=== PATIENT | female | born 1945 | race African-American/Black ===

== ENCOUNTER 2024-08-24 21:16 | Inpatient (IN) ==
--- NOTE | 2024-08-24 21:37 | Emergency Department Note ---
HPI - Dizziness General Chief Complaint: Dizziness Stated Complaint: HIGH BLOOD PRESSURE Time Seen by Provider: 08/24/24 21:37 Source: patient, family and EMS Source comment: patient's granddaughter Mode of arrival: ambulance Limitations: no limitations History of Present Illness MD elicited complaint: Reports dizziness and vertigo Onset (ago): hour(s) Timing: Reports sudden onset and constant Severity: moderate Description: Reports sense of movement, "room spinning" and lightheadedness Context: Reports change in body position History of similar symptoms: No Exacerbating factors: Reports movement/ambulation, change in body position, keeping eyes open and standing Relieving factors: Reports nothing Associated symptoms: Reports nausea, vomiting and weakness Associated neuro symptoms: Reports other (dizziness, vertigo) Related Data Allergies Allergy/AdvReac Type Severity Reaction Status Date / Time No Known Drug Allergies Allergy Verified 08/24/24 21:33 Review of Systems Status of ROS 10 or more systems reviewed and unremark able except as noted in history and below Constitutional Reports: malaise Ears, nose, mouth, and throat Reports: vertigo Cardiovascular Reports: lightheadedness Gastrointestinal Reports: abdominal pain, nausea, vomiting and diarrhea Neurological Reports: headache, dizziness and vertigo Psychiatric Reports: anxiety PFSH PFSH Medical History (Updated 08/24/24 @ 21:41 by Alma Jones RN) Carpal tunnel syndrome on both sides Hyperlipidemia Diabetes Surgical History (Updated 08/24/24 @ 21:41 by Alma Jones RN) History of neck surgery Previous back surgery H/O: hysterectomy Social History Smoking status: never smoker Feel stressed/tense/nervous/anxious/difficulty sleeping: rather much Life stressor details: Current medical status Due to disability, difficulty making decisions: No Exam Constitutional: normal general appearance, distress noted (moderate), average body habitus, no limitations and alert Vital Signs - 24 hr 08/24/24 21:18 08/24/24 21:43 08/24/24 21:50 Temperature 98.7 F Pulse Rate 71 65 Respiratory Rate 20 20 Blood Pressure 224/95 222/97 250/97 Pulse Oximetry 97 98 Oxygen Delivery Me thod Room Air Room Air 08/24/24 22:10 08/24/24 22:15 08/24/24 22:30 Temperature Pulse Rate 67 66 Respiratory Rate 20 19 Blood Pressure 218/92 209/87 211/84 Pulse Oximetry 99 97 Oxygen Delivery Me thod Room Air Room Air 08/24/24 22:45 08/24/24 23:00 08/24/24 23:15 Temperature Pulse Rate 67 70 Respiratory Rate 20 19 Blood Pressure 210/90 213/91 215/88 Pulse Oximetry 97 96 Oxygen Delivery Ri thod Room Air Room Air 08/24/24 23:15 08/24/24 23:30 08/25/24 00:00 Temperature 98.7 F Pulse Rate 69 67 80 Respiratory Rate 20 20 21 Blood Pressure 215/88 197/82 142/64 Pulse Oximetry 97 96 97 Oxygen Delivery Ri thod Room Air Room Air Room Air 08/25/24 00:00 08/25/24 00:30 08/25/24 01:00 Temperature Pulse Rate 81 82 Respiratory Rate 18 18 Blood Pressure 142/64 143/62 125/60 Pulse Oximetry 96 97 Oxygen Delivery Ri thod Room Air Room Air HENMT: normocephalic, head/scalp atraumatic, hearing grossly normal bi laterally, external ears normal, external nose normal, oral mucous membranes normal, oropharynx normal, dentition normal and gingiva normal Eyes: PERRL, EOMs intact bilaterally, conjunctivae normal, no scleral icterus, no papilledema, normal visual patiño by confrontation, alignment normal, periorbital findings normal and no nystagmus Neck/C-Spine: visual inspection normal, trachea midline, cervical spine tenderness noted, cervical full ROM noted, supple and no meningeal signs Patient has pain when turning her head to the far left related to prior neck and back surgeries and removal of the cyst a year ago. Lymph: no lymphadenopathy noted and no lymphedema noted Chest: inspection of chest normal, inspection of breast(s) abnormal (deferred) and palpation of breast(s) abnormal (deferred) Respiratory: breath sounds equal bilaterally, normal respiratory effort, clear to auscultation bilaterally, no wheezes, no rales, no retractions and no use of accessory muscles Cardiovascular: normal heart rate noted, regular rhythm noted, no gallop, no JVD, peripheral pulses 2+ throughout and no additional abnormal heart sounds Gastrointestinal: abdomen normal to inspection, abdomen soft to palpation, tender to palpation (Diffuse abdominal pain) (moderate), nondistended, normoactive bowel sounds, no hepatosplenomegaly, no masses, no pulsatile mass, no ascites and rectal exam abnormal (deferred) Genitourinary: no CVA tenderness, bladder normal to palpation, vaginal abnormality noted (deferred) and cervical abnormality noted (deferred) Back/Pelvis: spine normal to inspection Extremities: normal to inspection, normal to palpation, no tenderness, full ROM, no joint enlargement and no deformity Neurology: audio visual coordinator II-XII intact, no movement abnormality noted, no focal motor deficit noted, no sensory deficits noted, gait abnormality noted (unable to access), speech normal, coordination normal, no pronator drift noted, no fasciculations noted and GCS normal Psychiatry: Mental Status Exam documented within this Exam's Psych section mental status grossly normal, oriented x3, thought process normal, cooperative, affect abnormality noted (anxious), psychomotor activity normal and memory normal Feel stressed/tense/nervous/anxious/difficulty sleeping: rather much Life stressor details: Current medical status Due to disability, difficulty making decisions: No Skin: skin color normal, no rash, no lesions, no ecchymosis noted, no wounds, no lacerations, skin turgor normal, no jaundice, no petechiae, no mottling, nails normal and no alopecia Course Course Hospital Course: 79-year-old female who presented to ER by EMS with complaint of dizziness, nausea, vomiting, diarrhea, chest pain, and hypertension crisis has been evaluated by physical exam, CBC, CMP, troponin, urinalysis, EKG, CT of the brain without contrast, CT of the abdomen pelvis without contrast, and magnesium with results as noted in charting. On arrival patient was found to be in hypertensive urgency that included headache lab work revealed hypomagnesemia, mild anemia, CT shows no acute intracranial bleed; however, there are white matter changes and CT of the abdomen pelvis is unremarkable. Patient is continue to complain throughout her stay about her headache being the worst when she has had, she is continue to have nausea and vomiting, and she reports that she is unable to open her eyes due to the room spinning so badly. Patient will be admitted to [facility] floor hypertensive urgency which is improved, hypomagnesemia, intractable nausea vomiting, intractable pain, hyperglycemia, and CVA rule out. Patient and family are aware of the treatment plan and agree with that at this time. Vital Signs Vital signs: Vital Signs Temperature 98.7 F 08/24/24 21:18 Pulse Rate 71 08/24/24 21:18 Respiratory Rate 20 08/24/24 21:18 Blood Pressure 224/95 08/24/24 21:18 Pulse Oximetry 97 08/24/24 21:18 Oxygen Delivery Method Room Air 08/24/24 21:18 Temperature 98.7 F 08/25/24 00:00 Pulse Rate 82 08/25/24 01:00 Respiratory Rate 18 08/25/24 01:00 Blood Pressure 125/60 08/25/24 01:00 Pulse Oximetry 97 08/25/24 01:00 Oxygen Delivery Method Room Air 08/25/24 01:00 Discharge Plan Discharge Patient Disposition: Admitted As Observation Condition: Stable Clinical Impression: Hypomagnesemia, Hypertensive urgency, Cerebrovascular accident, Intractable nausea and vomiting, Intractable pain, Headache, Vertigo Time of Disposition: 00:15
[2024-08-24] MEDS: MECLIZINE HCL 25 MG TABLET PO STA (21:43)
[2024-08-24] MEDS: HYDRALAZINE HCL 20 MG/ML VIAL IVP ONE ×2 (21:43→23:15)
[2024-08-24 22:12] LABS: Basophils%(Percent) Auto 0.7 (0.1-0.85); Eosinophils%(Percent) Auto 0.8 % (0.4-2.8); Granulocytes#(Absolute)- Auto 3.8 (2.3-6.0); Hematocrit 35.4 % (35.9-46.7); Mean Corpuscular Volume 85.1 fl (81.0-93.7); Monocytes #(Absolute)- Auto 0.5 (1.1-3.1); Platelet Count 242 K/uL (152-353); White Blood Count 5.4 K/uL (4.3-9.3)
[2024-08-24 22:12] LABS: Urine Appearance CLEAR (CLEAR); Urine Blood NEGATIVE (NEG - TRACE); Urine Color YELLOW (STRAW/YELL.); Urine Urobilinogen Normal (NORMAL)
[2024-08-24 22:17] LABS: Potassium 3.9 mmol/L (3.6-5.2)
[2024-08-24] MEDS ORDERED: MAGNESIUM SULFATE 1 GM/2 ML VIAL ONE (23:13)
[2024-08-24] MEDS ORDERED: 0.9 % SODIUM CHLORIDE 100ML 100 ML IV ONE (23:15)
[2024-08-24] MEDS: MAGNESIUM SULFATE 1 GM/2 ML 2 GM in 0.9 % SODIUM CHLORIDE 100ML 100 ML IV ONE (23:16)
[2024-08-24] MEDS ORDERED: ONDANSETRON HCL/PF 4 MG/2 ML VIAL ONE (23:25)
[2024-08-24] MEDS: ONDANSETRON HCL/PF 4 MG/2 ML VIAL IVP ONE (23:30)
[2024-08-25] MEDS ORDERED: LORazepam 2 MG/ML VIAL ONE (00:06)
[2024-08-25] MEDS: LORazepam 2 MG/ML VIAL IVP ONE (00:10)
[2024-08-25] MEDS ORDERED: ONDANSETRON HCL/PF 4 MG/2 ML VIAL INJ PRN (02:19)
[2024-08-25] MEDS ORDERED: DOCUSATE SODIUM 100 MG CAPSULE PO PRN (02:19)
[2024-08-25] MEDS ORDERED: MAGNESIUM, ALUMINUM HYDROXIDE 30 ML ORAL.SUSP PO PRN (02:19)
[2024-08-25] MEDS ORDERED: HYDROCODONE/ACETAMINOPHEN 5/325 MG TABLET PO PRN (02:25)
[2024-08-25] MEDS ORDERED: MORPHINE SULFATE 4 MG/ML CARTRIDGE IV PRN (02:25)
[2024-08-25] MEDS ORDERED: PROMETHAZINE HCL 25 MG in 0.9 % SODIUM CHLORIDE 50 ML IV PRN (02:25)
[2024-08-25] MEDS ORDERED: ALPRAZolam 0.5 MG TABLET PO PRN (02:25)
[2024-08-25] MEDS ORDERED: MECLIZINE HCL 25 MG TABLET PO PRN (02:25)
[2024-08-25] MEDS: 0.9 % SODIUM CHLORIDE 1000 ML 1,000 ML IV SCH (02:58)
[2024-08-25] MEDS: PANTOPRAZOLE SODIUM 40 MG TABLET.DR PO SCH ×2 (09:13→11:28)
[2024-08-25 09:49] LABS: Basophils%(Percent) Auto 0.2 (0.1-0.85); Granulocytes % - Auto 77.2 % (47.8-71.3); Granulocytes#(Absolute)- Auto 5.1 (2.3-6.0); Hematocrit 37.8 % (35.9-46.7); Mean Corpuscular Volume 86.6 fl (81.0-93.7); Monocytes #(Absolute)- Auto 0.5 (1.1-3.1); Monocytes %(Percent)- Auto 7.2 % (3.6-9.8); Platelet Count 242 K/uL (152-353); White Blood Count 6.7 K/uL (4.3-9.3)
[2024-08-25 09:58] LABS: Potassium 4.1 mmol/L (3.6-5.2)
[2024-08-25] MEDS: GLIMEPIRIDE 2 MG TABLET PO SCH (11:33)
[2024-08-25] MEDS: ATORVASTATIN CALCIUM 40 MG TABLET PO SCH (11:33)
--- NOTE | 2024-08-25 13:19 | History & Physical Report ---
H&P: HPI History of Present Illness Chief complaint: HYPERTENSIVE URGENCY,HYPOMAGNESEMIA,CVA RULE OUT,V Narrative: Ms. Abarca was admitted on 08/24/24 from the ED after presenting with SALINAS, Dizziness, weakness, at 1800 yesterday. She was in her kitchen began feeling weak, had to assist her to the chair. Vomiting began shortly after. This morning she has had some improvement but still complains of BLE weakness and frontal headache. Neuro exam overall normal with some LLE weakness and mild facial paralysis on smile. On arrival BP was elevated SBP greater than 200; she did receive hydralazine in ED total of 20mg. CT of head was negative. CBC, CMP, UA negative. Review of Systems Status of ROS 10 or more systems reviewed and unremark able except as noted in history and below Constitutional Reports: malaise Ears, nose, mouth, and throat Reports: vertigo Cardiovascular Reports: lightheadedness Gastrointestinal Reports: abdominal pain, nausea, vomiting and diarrhea Neurological Reports: headache, dizziness and vertigo Psychiatric Reports: anxiety PFSH PFSH Medical History (Updated 08/25/24 @ 13:38 by Dinh Moise NP) HTN (hypertension) Dizziness Carpal tunnel syndrome on both sides Hyperlipidemia Diabetes Surgical History (Updated 08/24/24 @ 21:41 by Alma Jones RN) History of neck surgery Previous back surgery H/O: hysterectomy Social History Smoking status: never smoker Problems where you live: no known problems Highest level of school completed/degree received: high school Feel stressed/tense/nervous/anxious/difficulty sleeping: rather much Life stressor details: Current medical status Due to disability, difficulty making decisions: No Gender Identity: female Meds Home Medications and Allergies Home Medications Medication Instructions Recorded Confirmed Type atorvastatin 40 mg tablet 40 mg PO DAILY 08/25/2406/16 History glimepiride 4 mg tablet 4 mg PO DAILY 08/25/2408/25 History lisinopril 10 mg tablet 10 mg PO DAILY 08/25/2406/16 History metformin 500 mg tablet 500 mg PO .BID 08/25/2406/16 History metoprolol succinate 25 mg 25 mg PO DAILY 08/25/2406/16 History tablet,extended release 24 hr pantoprazole 40 mg tablet,delayed 40 mg PO DAILY 08/2508/25/24 History release Allergies Allergy/AdvReac Type Severity Reaction Status Date / Time No Known Drug Allergies Allergy Verified 08/24/24 21:33 Exam Constitutional: normal general appearance, no apparent distress, average body habitus, no limitations and alert Vital Signs - 24 hr 08/24/24 21:18 08/24/24 21:43 08/24/24 21:50 Temperature 98.7 F Pulse Rate 71 65 Pulse Rate [Right Radial] Respiratory Rate 20 20 Blood Pressure 224/95 222/97 250/97 Blood Pressure [Ri ght Arm] Pulse Oximetry 97 98 Oxygen Delivery Me thod Room Air Room Air 08/24/24 22:10 08/24/24 22:15 08/24/24 22:30 Temperature Pulse Rate 67 66 Pulse Rate [Right Radial] Respiratory Rate 20 19 Blood Pressure 218/92 209/87 211/84 Blood Pressure [Ri ght Arm] Pulse Oximetry 99 97 [facility] 08/24/24 22:45 08/24/24 23:00 08/24/24 23:15 Temperature Pulse Rate 67 70 Pulse Rate [Right Radial] Respiratory Rate 20 19 Blood Pressure 210/90 213/91 215/88 Blood Pressure [Ri ght Arm] Pulse Oximetry 97 96 [facility] Room Air 08/24/24 23:15 08/24/24 23:30 08/25/24 00:00 Temperature 98.7 F Pulse Rate 69 67 80 Pulse Rate [Right Radial] Respiratory Rate 20 20 21 Blood Pressure 215/88 197/82 142/64 Blood Pressure [Ri ght Arm] Pulse Oximetry 97 96 97 Oxygen Delivery Pa thod Room Air Room Air Room Air 08/25/24 00:00 08/25/24 00:30 08/25/24 01:00 Temperature Pulse Rate 81 82 Pulse Rate [Right Radial] Respiratory Rate 18 18 Blood Pressure 142/64 143/62 125/60 Blood Pressure [Ri ght Arm] Pulse Oximetry 96 97 Oxygen Delivery Me thod Room Air Room Air 08/25/24 01:30 08/25/24 02:00 08/25/24 02:20 Temperature 97.7 F Pulse Rate 81 82 Pulse Rate [Right Radial] 89 Respiratory Rate 14 16 16 Blood Pressure 128/66 131/68 Blood Pressure [Ri ght Arm] 139/68 Pulse Oximetry 97 98 97 Oxygen Delivery Me thod Room Air Room Air Room Air 08/25/24 02:30 08/25/24 02:45 08/25/24 02:45 Temperature 98.7 F Pulse Rate 85 85 85 Pulse Rate [Right Radial] Respiratory Rate 15 15 15 Blood Pressure 135/67 137/64 137/64 Blood Pressure [Ri ght Arm] Pulse Oximetry 97 97 97 Oxygen Delivery Me thod Room Air Room Air 08/25/24 02:58 08/25/24 03:48 08/25/24 08:00 Temperature 97.7 F 97.7 F 97.9 F Pulse Rate Pulse Rate [Right Radial] 89 89 80 Respiratory Rate 16 16 19 Blood Pressure Blood Pressure [Ri ght Arm] 139/68 139/68 152/73 Pulse Oximetry 97 97 100 Oxygen Delivery Me thod Room Air Room Air Room Air 08/25/24 12:00 Temperature 97.4 F L Pulse Rate Pulse Rate [Right Radial] 72 Respiratory Rate 18 Blood Pressure Blood Pressure [Ri ght Arm] 191/81 Pulse Oximetry 99 Oxygen Delivery Me thod Room Air HENMT: normocephalic, head/scalp atraumatic, hearing grossly normal bilaterally, external ears normal, external nose normal, oral mucous membranes normal, oropharynx normal, dentition normal and gingiva normal Eyes: PERRL, EOMs intact bilaterally, conjunctivae normal, no scleral icterus, no papilledema, normal visual patiño by confrontation, alignment normal, periorbital findings normal and no nystagmus Neck/C-Spine: visual inspection normal, trachea midline, cervical spine tenderness noted, cervical full ROM noted, supple and no meningeal signs Patient has pain when turning her head to the far left related to prior neck and back surgeries and removal of the cyst a year ago. Lymph: no lymphadenopathy noted and no lymphedema noted Chest: inspection of chest normal, inspection of breast(s) abnormal (deferred) and palpation of breast(s) abnormal (deferred) Respiratory: breath sounds equal bilaterally, normal respiratory effort, clear to auscultation bilaterally, no wheezes, no rales, no retractions and no use of accessory muscles Cardiovascular: normal heart rate noted, regular rhythm noted, no gallop, no JVD, peripheral pulses 2+ throughout and no additional abnormal heart sounds Gastrointestinal: abdomen normal to inspection, abdomen soft to palpation, tender to palpation (Diffuse abdominal pain) (moderate), nondistended, normoactive bowel sounds, no hepatosplenomegaly, no masses, no pulsatile mass, no ascites and rectal exam abnormal (deferred) Genitourinary: no CVA tenderness, bladder normal to palpation, vaginal abnormality noted (deferred) and cervical abnormality noted (deferred) Back/Pelvis: spine normal to inspection Extremities: normal to inspection, normal to palpation, no tenderness, full ROM, no joint enlargement and no deformity Neurology: esl tutor II-XII intact, no movement abnormality noted, no focal motor deficit noted, no sensory deficits noted, gait normal, speech normal, coordination normal, no pronator drift noted, no fasciculations noted and GCS normal NIH scale 1, ataxia LLE Psychiatry: Mental Status Exam documented within this Exam's Psych section mental status grossly normal, oriented x3, thought process normal, cooperative, affect abnormality noted (anxious), psychomotor activity normal and memory normal Feel stressed/tense/nervous/anxious/difficulty sleeping: rather much Life stressor details: Current medical status Due to disability, difficulty making decisions: No Skin: skin color normal, no rash, no lesions, no ecchymosis noted, no wounds, no lacerations, skin turgor normal, no jaundice, no petechiae, no mottling, nails normal and no alopecia Assessment and Plan Assessment and Plan (1) HTN (hypertension): Code(s): I10 - Essential (primary) hypertension (2) Diabetes: Code(s): E11.9 - Type 2 diabetes mellitus without complications (3) Dizziness: Code(s): R42 - Dizziness and giddiness (4) Hypertensive urgency: Code(s): I16.0 - Hypertensive urgency Plan Admit VS q4hrs 1999 ADA diet Neuro q4hrs MRI Carotid US Echo Accuchecks ACHS CE x3 Hold BP meds, resume gradually CBC CMP in AM Results Labs Labs: CBC 08/24/24 08/25/24 Range/Units 21:50 08:10 WBC 5.4 6.7 (4.3-9.3) K/uL RBC 4.2 4.4 (4.00-5.50) M/uL Hgb 11.4 L 11.9 L (12.5-15.8) gm/dL Hct 35.4 L 37.8 (35.9-46.7) % Plt Count 242 242 (152-353) K/uL Gran % 71.0 77.2 H (47.8-71.3) % Lymph % (Auto) 18.5 L 15.4 L (20.0-43.0) % Power % (Auto) 9.0 7.2 (3.6-9.8) % Eos % (Auto) 0.8 0.0 L (0.4-2.8) % Baso % (Auto) 0.7 0.2 (0.1-0.85) Lymph # (Auto) 1.0 L 1.0 L (1.1-3.1) Power # (Auto) 0.5 L 0.5 L (1.1-3.1) Eos # (Auto) 0.0 0.0 (0.0-0.2) Baso # (Auto) 0.0 0.0 (0.0-0.1) Absolute Gran (auto) 3.8 5.1 (2.3-6.0) CMP 08/24/24 08/25/24 21:50 08:10 Sodium 138 140 Potassium 3.9 4.1 Chloride 103.0 105.0 Carbon Dioxide 28 29 BUN 15 17 Creatinine 1.1 1.2 Glucose 214 H 232 H Calcium 8.8 8.9 Liver Function 08/24/24 08/25/24 Range/Units 21:50 08:10 Total Bilirubin 0.29 0.27 (0.0-1.0) mg/dL AST 26 22 (15-37) U/L ALT 21 L 22 L (30-65) U/L Alkaline Phosphatase 114 108 (50-136) U/L Albumin 3.6 3.2 L (3.4-5.0) g/dL Urine 08/24/24 21:45 Urine Color Yellow Urine Appearance Clear Ur Specific [place] 1.010 Urine Protein Negative Urine Glucose (UA) 4+ Imaging Imaging ordered: CT scan - abdomen and CT scan - head Radiologist's impression: Patient: Jaiden Abarca MR#: [id number] : 1945 Acct:[id number] Age/Sex: 79 / F ADM Date: 08/24/24 Loc: ED Attending Dr: Ordering Physician: Lorne Newman ASSURANCE OFFICER Date of Service: 08/24/24 Procedure(s): CT abdomen pelvis wo con Accession Number(s): [id number] cc: Lorne Solis ASSURANCE OFFICER~ PROCEDURE: CT Abdomen and Pelvis without IV Contrast. HISTORY: Abdomen pain with nausea, vomiting, and diarrhea. TECHNIQUE: Axial images were performed through the abdomen and pelvis without the administration of IV contrast with multiplanar reformations . Oral contrast was notadministered . Dose reduction techniques including Automated Exposure Control (AEC) and adjustment of mA and kV were utilized .. COMPARISON: None. TECHNICAL QUALITY: Satisfactory. FINDINGS: Clear lung bases. Liver, spleen, adrenals, pancreas show no abnormality. Kidneys show no urinary tract stones or obstruction. Some vascular calcifications both renal arturo. Normal biliary tract. No ascites or pneumoperitoneum. Mild atherosclerosis aorta. No lymphadenopathy. No bowel obstruction or inflammation. Normal appendix. Pelvis shows moderate distention of the urinary bladder and no masses or free fluid. Previous hysterectomy. No acute bony abnormality. IMPRESSION: No significant abnormality identified. THIS IS AN ELECTRONICALLY VERIFIED FINAL REPORT 08/25/2024 12:04 AM - Electronically signed by Rohan Maria MD Dictated By: Emile Maria M.D. Signed By: [place] [id number] CT Scan Report Signed Patient: Jaiden Abarca MR#: [id number] : 1945 Acct:[id number] Age/Sex: 79 / F ADM Date: 08/24/24 Loc: ED Attending Dr: Ordering Physician: Lorne Newman NP Date of Service: 08/24/24 Procedure(s): CT head/brain wo con Accession Number(s): [id number] cc: Lorne Solis ASSURANCE OFFICER~ EXAM: CT HEAD/BRAIN WO CON HISTORY: Dizziness and hypertension COMPARISON: CT of the head July 01, 2022 TECHNIQUE: CT of the head without contrast FINDINGS: Generalized brain atrophy. Benign basal ganglia mineralization. Extensive microvascular ischemic change in the periventricular white matter. No hemorrhage or extra-axial collection. Minimal opacities left mastoid air cells. No paranasal sinus air-fluid levels. No skull fracture or suspicious bony lesion. IMPRESSION: Chronic brain findings. All CT scans at this facility use dose modulation, iterative reconstruction, and/or weight based dosing when appropriate to reduce radiation dose to as low as reasonably achievable. THIS IS AN ELECTRONICALLY VERIFIED FINAL REPORT 08/25/2024 12:08 AM - Electronically signed by Konrad Warner MD Dictated By: Konrad Warner M.D. Signed By: 08/25/24 0008
[2024-08-25] MEDS: ENALAPRILAT DIHYDRATE 1.25 MG/ML VIAL IVP PRN (16:15)
[2024-08-25] MEDS: ASPIRIN 325 MG TABLET PO SCH (20:27)
[2024-08-25] MEDS: cloNIDine HCL 0.1 MG TABLET PO ONE (20:30)
[2024-08-25] MEDS: ACETAMINOPHEN 500 MG TABLET PO PRN (20:35)
[2024-08-26 05:35] LABS: Basophils%(Percent) Auto 0.6 (0.1-0.85); Eosinophils#(Absolute)Auto 0.1 (0.0-0.2); Eosinophils%(Percent) Auto 1.2 % (0.4-2.8); Granulocytes % - Auto 57.2 % (47.8-71.3); Granulocytes#(Absolute)- Auto 2.6 (2.3-6.0); Hematocrit 33.1 % (35.9-46.7); Mean Corpuscular Volume 85.1 fl (81.0-93.7); Monocytes #(Absolute)- Auto 0.5 (1.1-3.1); Monocytes %(Percent)- Auto 10.4 % (3.6-9.8); Platelet Count 235 K/uL (152-353); White Blood Count 4.6 K/uL (4.3-9.3)
[2024-08-26] MEDS ORDERED: MECLIZINE HCL 25 MG TABLET PO PRN (10:24)
[2024-08-26] MEDS: ENOXAPARIN SODIUM 60 MG/0.6 ML SYRINGE SUBQ SCH (12:00)
[2024-08-26] MEDS: METOPROLOL SUCCINATE 25 MG TAB.ER.24H PO SCH (12:00)
[2024-08-26] MEDS: PIPERACILLIN/TAZOBACTAM 3.375 3.375 GM in 0.9 % SODIUM CHLORIDE MB+ 100 ML IV SCH (12:00)
[2024-08-26] MEDS: lisinopriL 10 MG TABLET PO SCH (12:01)
[2024-08-26] MEDS: cloNIDine HCL 0.1 MG TABLET PO PRN (13:21)
[2024-08-27 06:43] LABS: Basophils%(Percent) Auto 0.3 (0.1-0.85); Eosinophils%(Percent) Auto 0.5 % (0.4-2.8); Granulocytes#(Absolute)- Auto 4.5 (2.3-6.0); Hematocrit 34.8 % (35.9-46.7); Mean Corpuscular Volume 86.4 fl (81.0-93.7); Monocytes #(Absolute)- Auto 0.6 (1.1-3.1); Monocytes %(Percent)- Auto 10.3 % (3.6-9.8); Platelet Count 235 K/uL (152-353); White Blood Count 6.3 K/uL (4.3-9.3)
[2024-08-27 06:50] LABS: Potassium 4.2 mmol/L (3.6-5.2)
--- NOTE | 2024-08-27 13:34 | Progress Note ---
Progress Note: Subjective Subjective Interval history: Ms. Abarca is doing well this morning. She is scheduled for repeat MRI in am to reassess her mastoiditis. She does have some constipation. Exam Constitutional: normal general appearance, no apparent distress, average body habitus, no limitations and alert Vital Signs - 24 hr 08/26/24 16:00 08/26/24 17:04 08/26/24 20:00 Temperature 97.8 F 98.2 F Pulse Rate [Right Radial] 59 L 65 Respiratory Rate 19 19 Blood Pressure 180/82 Blood Pressure [Ri ght Arm] 181/82 142/66 Pulse Oximetry 98 98 Oxygen Delivery Me thod Room Air Room Air 08/27/24 00:00 08/27/24 04:00 08/27/24 05:43 Temperature 98.0 F 97.5 F L Pulse Rate [Right Radial] 66 61 Respiratory Rate 18 19 Blood Pressure 186/85 Blood Pressure [Ri ght Arm] 138/70 187/79 Pulse Oximetry 99 99 Oxygen Delivery Me thod Room Air Room Air 08/27/24 08:00 08/27/24 12:00 Temperature 97.8 F 97.6 F Pulse Rate [Right Radial] 59 L 58 L Respiratory Rate 19 19 Blood Pressure Blood Pressure [Ri ght Arm] 135/75 142/79 Pulse Oximetry 97 97 Oxygen Delivery Me thod Room Air Room Air HENMT: normocephalic, head/scalp atraumatic, hearing grossly normal bilaterally, external ears normal, external nose normal, oral mucous membranes normal, oropharynx normal, dentition normal and gingiva normal Eyes: PERRL, EOMs intact bilaterally, conjunctivae normal, no scleral icterus, no papilledema, normal visual patiño by confrontation, alignment normal, periorbital findings normal and no nystagmus Neck/C-Spine: visual inspection normal, trachea midline, cervical spine te nderness noted, cervical full ROM noted, supple and no meningeal signs Patient has pain when turning her head to the far left related to prior neck and back surgeries and removal of the cyst a year ago. Lymph: no lymphadenopathy noted and no lymphedema noted Chest: inspection of chest normal, inspection of breast(s) abnormal (deferred) and palpation of breast(s) abnormal (deferred) Respiratory: breath sounds equal bilaterally, normal respiratory effort, clear to auscultation bilaterally, no wheezes, no rales, no retractions and no use of accessory muscles Cardiovascular: normal heart rate noted, regular rhythm noted, no gallop, no JVD, peripheral pulses 2+ throughout and no additional abnormal heart sounds Gastrointestinal: abdomen normal to inspection, abdomen soft to palpation, tender to palpation (Diffuse abdominal pain) (moderate), nondistended, normoactive bowel sounds, no hepatosplenomegaly, no masses, no pulsatile mass, no ascites and rectal exam abnormal (deferred) Genitourinary: no CVA tenderness, bladder normal to palpation, vaginal abnormality noted (deferred) and cervical abnormality noted (deferred) Back/Pelvis: spine normal to inspection Extremities: normal to inspection, normal to palpation, no tenderness, full ROM, no joint enlargement and no deformity Neurology: 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, no movement abnormality noted, no focal motor deficit noted, no sensory deficits noted, gait normal, speech normal, coordination normal, no pronator drift noted, no fasciculations noted and GCS normal Psychiatry: Mental Status Exam documented within this Exam's Psych section mental status grossly normal, oriented x3, thought process normal, cooperative, affect abnormality noted (anxious), psychomotor activity normal and memory normal Feel stressed/tense/nervous/anxious/difficulty sleeping: rather much Life stressor details: Current medical status Due to disability, difficulty making decisions: No Skin: skin color normal, no rash, no lesions, no ecchymosis noted, no wounds, no lacerations, skin turgor normal, no jaundice, no petechiae, no mottling, nails normal and no alopecia Progress Note: Objective Labs Labs: CBC 08/27/24 Range/Units 06:12 WBC 6.3 (4.3-9.3) K/uL RBC 4.0 (4.00-5.50) M/uL Hgb 11.2 L (12.5-15.8) gm/dL Hct 34.8 L (35.9-46.7) % Plt Count 235 (152-353) K/uL Gran % 71.0 (47.8-71.3) % Lymph % (Auto) 17.9 L (20.0-43.0) % [place] % (Auto) 10.3 H (3.6-9.8) % Eos % (Auto) 0.5 (0.4-2.8) % Baso % (Auto) 0.3 (0.1-0.85) Lymph # (Auto) 1.1 (1.1-3.1) [place] # (Auto) 0.6 L (1.1-3.1) Eos # (Auto) 0.0 (0.0-0.2) Baso # (Auto) 0.0 (0.0-0.1) Absolute Gran (auto) 4.5 (2.3-6.0) CMP 08/27/24 06:12 Sodium 144 Potassium 4.2 Chloride 110.0 H Carbon Dioxide 29 BUN 15 Creatinine 1.1 Glucose 60 L Calcium 8.5 Urine 08/24/24 21:45 Urine Color Yellow Urine Appearance Clear Ur Specific [place] 1.010 Urine Protein Negative Urine Glucose (UA) 4+ Imaging CT scan - head: Radiologist's impression: Patient: Jaiden Abarca MR#: [id number] : 1945 Acct:[id number] Age/Sex: 79 / F ADM Date: 08/24/24 Loc: ED Attending Dr: Ordering Physician: Lorne Newman NP Date of Service: 08/24/24 Procedure(s): CT head/brain wo con Accession Number(s): [id number] cc: Ruiz Hays; Lorne Newman NP~ EXAM: CT HEAD/BRAIN WO CON HISTORY: Dizziness and hypertension COMPARISON: CT of the head July 01, 2022 TECHNIQUE: CT of the head without contrast FINDINGS: Generalized brain atrophy. Benign basal ganglia mineralization. Extensive microvascular ischemic change in the periventricular white matter. No hemorrhage or extra-axial collection. Minimal opacities left mastoid air cells. No paranasal sinus air-fluid levels. No skull fracture or suspicious bony lesion. IMPRESSION: Chronic brain findings. All CT scans at this facility use dose modulation, iterative reconstruction, and/or weight based dosing when appropriate to reduce radiation dose to as low as reasonably achievable. THIS IS AN ELECTRONICALLY VERIFIED FINAL REPORT 08/25/2024 12:08 AM - Electronically signed by Konrad Warner MD Dictated By: Konrad Warner M.D. Signed By: MRI - head: Radiologist's impression: Patient: Jaiden Abarca MR#: [id number] : 1945 Acct:[id number] Age/Sex: 79 / F ADM Date: 08/25/24 Loc: [place] 1111-[address]: Vickey BARRAGAN Ordering Physician: Lorne Newman NP Date of Service: 08/25/24 Procedure(s): MR head/brain wo/w con Accession Number(s): [id number] cc: ~ EXAM: MR HEAD/BRAIN WO/W CON HISTORY: CVA rule out; dizziness, weakness since yesterday; GFR: 46.1 10 ML [facility] IMAGES COMPARISON: CT from yesterday TECHNIQUE: Multiplanar multi-sequence MRI of the brain was obtained. Sagittal T1, axial T1, axial T2, axial flair images, coronal T1, sagittal T1 post contrast, coronal T1 postcontrast, axial T1 postcontrast images were obtained. FINDINGS: The midline structures appear intact. The posterior fossa is unremarkable. The sulcal markings of the brain are normal in their appearance. Normal potter-white differentiation is maintained. No evidence for intraparenchymal hemorrhage or mass can be identified. No extra-axial fluid collections or subarachnoid hematoma can be seen. Evaluation of the diffusion weighted images demonstrates no evidence for acute ischemic change. Scattered small-vessel ischemic changes and age-appropriate atrophy are noted. The cerebral pontine angle is normal in its contour without evidence for mass. The ventricular system appears symmetric and nondilated. There is a left-sided mastoid air cell effusion which may be due to mastoiditis. Please correlate. Postcontrast enhancement demonstrates no evidence for an enhancing lesion such as mass or vascular malformation. IMPRESSION: Chronic small-vessel ischemic changes and age-appropriate atrophy with no acute intracranial findings. Left mastoid air cell effusion. Please correlate for possible mastoiditis. THIS IS AN ELECTRONICALLY VERIFIED FINAL REPORT 08/25/2024 5:13 PM - Electronically signed by You Estevez MD Dictated By: David Estevez M.D. Signed By: CT scan - abdomen: Radiologist's impression: Patient: Jaiden Abarca MR#: [id number] : 1945 Acct:[id number] Age/Sex: 79 / F ADM Date: 08/24/24 Loc: ED Attending Dr: Ordering Physician: Lorne Newman NP Date of Service: 08/24/24 Procedure(s): CT abdomen pelvis wo con Accession Number(s): [id number] cc: Ruiz Hays; Lorne Newman CHIEF DEPUTY CLERK/BAILIFF~ PROCEDURE: CT Abdomen and Pelvis without IV Contrast. HISTORY: Abdomen pain with nausea, vomiting, and diarrhea. TECHNIQUE: Axial images were performed through the abdomen and pelvis without the administration of IV contrast with multiplanar reformations . Oral contrast was notadministered . Dose reduction techniques including Automated Exposure Control (AEC) and adjustment of mA and kV were utilized .. COMPARISON: None. TECHNICAL QUALITY: Satisfactory. FINDINGS: Clear lung bases. Liver, spleen, adrenals, pancreas show no abnormality. Kidneys show no urinary tract stones or obstruction. Some vascular calcifications both renal arturo. Normal biliary tract. No ascites or pneumoperitoneum. Mild atherosclerosis aorta. No lymphadenopathy. No bowel obstruction or inflammation. Normal appendix. Pelvis shows moderate distention of the urinary bladder and no masses or free fluid. Previous hysterectomy. No acute bony abnormality. IMPRESSION: No significant abnormality identified. THIS IS AN ELECTRONICALLY VERIFIED FINAL REPORT 08/25/2024 12:04 AM - Electronically signed by Rohan Maria MD Dictated By: Emile Maria M.D. Signed By: Progress Note: A&P Assessment and Plan (1) Mastoiditis: (2) HTN (hypertension): (3) Diabetes: (4) Dizziness: (5) Hypertensive urgency: Plan Admit VS q4hrs 1999 ADA diet Neuro q4hrs Accuchecks ACHS Lisinopril 20mg po BID Zosyn 3.375gm IV q6h CBC CMP in AM Fall Risk Details Izquierdo Fall Scale Risk Level: High Fall Risk Current Medications: Current Medications Acetaminophen (Acetaminophen 500 Mg Tablet) 1,000 mg PO Q6H PRN PRN Reason: MILD PAIN SCALE 1-4 Last Admin: 08/25/24 20:35 Dose: 1,000 mg Hydrocodone Bitart/Acetaminophen (Hydrocodone/Acetaminophen 5/325 Mg Tablet) 1 each PO Q6H PRN PRN Reason: Moderate Pain SCALE 5-7 Alprazolam (Alprazolam 0.5 Mg Tablet) 0.5 mg PO TID PRN PRN Reason: Anxiety Aspirin (Aspirin 325 Mg Tablet) 325 mg PO BEDTIME [facility] Last Admin: 08/26/24 20:43 Dose: 325 mg Atorvastatin Calcium (Atorvastatin Calcium 40 Mg Tablet) 40 mg PO DAILY [facility] Last Admin: 08/27/24 08:08 Dose: 40 mg Clonidine HCl (Clonidine Hcl 0.1 Mg Tablet) 0.1 mg PO DAILY PRN PRN Reason: Blood Pressure - High Last Admin: 08/27/24 05:43 Dose: 0.1 mg Docusate Sodium (Docusate Sodium 100 Mg Capsule) 100 mg PO DAILY PRN PRN Reason: Constipation Enoxaparin Sodium (Enoxaparin Sodium 60 Mg/0.6 Ml Syringe) 60 mg SUBQ BID [facility] Last Admin: 08/27/24 08:09 Dose: 60 mg Glimepiride (Glimepiride 2 Mg Tablet) 4 mg PO QDCC [facility] Last Admin: 08/27/24 08:09 Dose: 4 mg Sodium Chloride (Sodium Chloride) 1,000 mls @ 75 mls/hr IV CONT [facility] Last Admin: 08/27/24 11:28 Dose: 75 mls/hr Promethazine HCl 25 mg/ Sodium (Chloride) 51 mls @ 200 mls/hr IV Q6H PRN PRN Reason: Nausea And Vomiting Piperacillin Sod/Tazobactam (Sod 3.375 gm/ Sodium Chloride) 100 mls @ 200 mls/hr IV Q6H [facility] Last Infusion: 08/27/24 12:34 Dose: Infused Insulin Human Regular (Insulin Regular, Human 100 Unit/Ml) 0 unit SUBQ ACHS PRN; Protocol PRN Reason: hyperglycemia Last Admin: 08/26/24 21:17 Dose: 6 unit Lisinopril (Lisinopril 10 Mg Tablet) 10 mg PO BID [facility] Last Admin: 08/27/24 08:09 Dose: 10 mg Magnesium Hydroxide (Magnesium, Aluminum Hydroxide 30 Ml Oral.Susp) 30 ml PO DAILY PRN PRN Reason: Heartburn Meclizine HCl (Meclizine Hcl 25 Mg Tablet) 25 mg PO Q6H PRN PRN Reason: Vertigo Metoprolol Succinate (Metoprolol Succinate 25 Mg Tab.Er.24h) 25 mg PO DAILY [facility] Last Admin: 08/27/24 08:07 Dose: 25 mg Morphine Sulfate (Morphine Sulfate 4 Mg/Ml Cartridge) 4 mg IV Q6H PRN PRN Reason: Severe Pain SCALE 8-10 Ondansetron HCl (Ondansetron Hcl/Pf 4 Mg/2 Ml Vial) 4 mg INJ Q6H PRN PRN Reason: Nausea And Vomiting Pantoprazole Sodium (Pantoprazole Sodium 40 Mg Tablet.Dr) 40 mg PO QDAC [facility] Last Admin: 08/27/24 08:08 Dose: 40 mg Time Spent With Patient Time: Total time spent is greater than 50% in coordination of care (as documented) at patient's floor/unit and/or counseling patient:
[2024-08-27] MEDS: DOCUSATE SODIUM 100 MG CAPSULE PO SCH (15:36)
[2024-08-28 05:51] LABS: Basophils%(Percent) Auto 0.5 (0.1-0.85); Eosinophils#(Absolute)Auto 0.2 (0.0-0.2); Granulocytes % - Auto 51.7 % (47.8-71.3); Granulocytes#(Absolute)- Auto 2.6 (2.3-6.0); Hematocrit 30.5 % (35.9-46.7); Mean Corpuscular Volume 85.5 fl (81.0-93.7); Monocytes #(Absolute)- Auto 0.6 (1.1-3.1); Monocytes %(Percent)- Auto 11.8 % (3.6-9.8); Platelet Count 208 K/uL (152-353)
[2024-08-28 06:07] LABS: Potassium 3.8 mmol/L (3.6-5.2)
[2024-08-28] MEDS: AMLODIPINE BESYLATE 5 MG TABLET PO ONE (11:53)
[2024-08-28 16:03] VITALS: BP 185/92; PULSE 61; RESP 18; TEMP 98.4
--- NOTE | 2024-08-28 18:10 | Discharge Summary ---
DS: Providers Provider Date of admission: 08/25/24 02:20 Primary care physician: Ruiz Hays MD DS: Diagnosis Discharge Diagnosis (1) Mastoiditis: Assessment and plan: Prescription for TobraDex 1 drop in left ear every 6 hours for 5 days Prescription for Levaquin 750mg po daily for 10 days (2) HTN (hypertension): Assessment and plan: Increase Lisinopril to 10mg po BID Start Norvasc 5mg po daily Start Aspirin 81mg po daily (3) Diabetes: Assessment and plan: Continue Glimepiride and Metformin (4) Dizziness: Assessment and plan: Resolved (5) Hypertensive urgency: Assessment and plan: Resolved Plan Discharge home to care of family Follow up with PCP next week. Referral to Dr. Escalona, Interim Controller, for BP and cardiac monitoring Referral to home health with Physical Therapy Prescription for TobraDex 1 drop in left ear every 6 hours for 5 days Prescription for Levaquin 750mg po daily for 10 days Hold Atorvastatin until Levaquin is completed Start Aspirin 81mg po daily DS: Summary Hospital Course Hospital Course: Mrs. Abarca is a 79-year-old female who was admitted on 08/25/24 for hypertensive urgency, hypomagnesemia, CVA rule out, vertigo, and hyperglycemia. Patient initially presented to ER via EMS with complaints of dizziness, nausea, vomiting, diarrhea, chest pain, and elevated blood pressure. ER workup included CBC, CMP, troponin, urinalysis, EKG, CT of the brain without contrast, CT of the abdomen pelvis without contrast, and magnesium with results as noted in charting. On arrival to ER patient was found to be in hypertensive urgency and was given [address] of head without contrast showed generalized brain atrophy. Benign basal ganglia mineralization. Extensive microvascular ischemic change in the periventricular white matter. No hemorrhage or extra- axial collection. Minimal opacities left mastoid air cells. No paranasal sinus air-fluid levels. No skull fracture or suspicious bony lesion. CT of the abdomen pelvis was unremarkable. MRI Brain revealed Chronic small-vessel ischemic changes and age-appropriate atrophy with no acute intracranial findings. Left mastoid air cell effusion; possible mastoiditis. Patient was treated with Zosyn 3.375mg IV every 6 hours. Lisinopril was increased to BID. Patient required multiple doses of Enalapril and Clonidine for SBP > 180. Norvasc 5mg po daily was added. Time Spent with Patient Time attestation: Total time spent providing and/or coordinating discharge services: Time spent: greater than 30 minutes Exam Constitutional: Vital Signs - 24 hr 08/27/24 19:00 08/28/24 00:00 08/28/24 04:00 Temperature 98.7 F 98.6 F 97.8 F Pulse Rate [Right Radial] 64 68 64 Respiratory Rate 18 19 19 Blood Pressure Blood Pressure [Ri ght Arm] 203/88 159/61 193/78 Pulse Oximetry 98 98 99 Oxygen Delivery Me thod Room Air Room Air Room Air 08/28/24 05:26 08/28/24 07:57 08/28/24 09:10 Temperature 97.3 F L Pulse Rate [Right Radial] 60 Respiratory Rate 17 Blood Pressure 193/78 161/65 Blood Pressure [Ri ght Arm] 161/65 Pulse Oximetry 97 Oxygen Delivery Me thod Room Air 08/28/24 11:53 08/28/24 12:00 08/28/24 16:00 Temperature 98.0 F 98.4 F Pulse Rate [Right Radial] 57 L 61 Respiratory Rate 19 18 Blood Pressure 181/72 Blood Pressure [Ri ght Arm] 181/72 185/92 Pulse Oximetry 98 99 Oxygen Delivery Me thod Room Air Room Air DS: Data Data Completed and Pending Labs on day of discharge: Labs from last 24 hours 08/28/24 08/28/24 12:20 05:50 WBC 5.0 RBC 3.6 L Hgb 10.0 L Hct 30.5 L MCV 85.5 MCH 28.1 MCHC 32.9 L RDW 15.4 H Plt Count 208 MPV 7.8 Gran % 51.7 Lymph % (Auto) 33.0 [place] % (Auto) 11.8 H Eos % (Auto) 3.0 H Baso % (Auto) 0.5 Lymph # (Auto) 1.6 [place] # (Auto) 0.6 L Eos # (Auto) 0.2 Baso # (Auto) 0.0 Absolute Gran (auto) 2.6 Sodium 144 Potassium 3.8 Chloride 111.0 H Carbon Dioxide 27 Anion Gap 6.0 BUN 13 Creatinine 1.0 Estimated GFR 57.3 Glucose 66 L Calcium 7.9 L Triglycerides 57 Cholesterol 159 LDL Cholesterol 80.0 VLDL Cholesterol, Calc 11 HDL Cholesterol 70 LDL/HDL Ratio 1.1 Cholesterol/HDL Ratio 2 TSH 1.34 Preliminary micro results at discharge 08/26/24 11:10 Blood Culture - Preliminary Blood - Venous Draw (Peripheral) Discharge Plan Discharge Disposition: Home, Self-Care Condition: Improved Discharge Medications: New amlodipine 5 mg Tablet 5 mg PO DAILY Qty: 30 0RF lisinopril 10 mg Tablet 10 mg PO BID Qty: 60 0RF aspirin 81 mg tablet 81 mg PO DAILY Qty: 30 0RF levofloxacin 750 mg tablet 750 mg PO DAILY Qty: 10 0RF tobramycin-dexamethasone 0.3-0.1 % drops,suspension 1 drp ophthalmic (eye) Q6H Qty: 5 0RF Rx Instructions: Place one drop in left ear every 6 hours for 5 days. Continued glimepiride 4 mg tablet 4 mg PO DAILY Patient Comments: TAKE ONE TABLET BY MOUTH DAILY WITH BREAKFAST OR THE FIRST MAIN MEAL OF THE DAY Rx Instructions: TAKE ONE TABLET BY MOUTH DAILY WITH BREAKFAST OR FIRST MEAL OF THE DAY lisinopril 10 mg tablet 10 mg PO DAILY Patient Comments: TAKE ONE TABLET BY MOUTH DAILY metformin 500 mg tablet 500 mg PO .BID Patient Comments: TAKE ONE TABLET BY MOUTH TWICE DAILY WITH A MEAL metoprolol succinate 25 mg tablet extended release 24 hr 25 mg PO DAILY Patient Comments: TAKE ONE TABLET BY MOUTH DAILY pantoprazole 40 mg tablet,delayed release (DR/EC) 40 mg PO DAILY Patient Comments: TAKE ONE TABLET BY MOUTH DAILY Held atorvastatin 40 mg tablet 40 mg PO DAILY Hold Instructions: Resume on 09/07/24. Hold until Levaquin is completed. Patient Comments: TAKE ONE TABLET BY MOUTH DAILY Discharge Orders: Discharge Order (Routine); Ordered 08/28/24 Ordered By: Iwona Vera Activity: increase activity as tolerated Diet: advance to your usual diet Interventions: Discharge Assessment Last Done: 08/28/24 17:36 MED/SURG & ICU Observation Charge Sheet Last Done: 08/28/24 17:39 Patient Instructions: Hypertensive Crisis (DC), Mastoiditis (DC) Activity Restrictions/Additional Instructions: START NEW MEDICATIONS DIRECTED STOP TAKING ATORVASTATIN UNTIL SEPTEMBER 07, 2024 WHEN LEVOFLOXACIN IS COMPLETED FOLLOW-UP WITH PRIMARY CARE FOLLOW-UP WITH CUSTOMER EXPERT KEEP A LOG OF BLOOD PRESSURES TWO TIMES A DAY AND NEEDED IN BETWEEN TAKE BLOOD PRESSURE LOG TO FOLLOW-UP APPOINTMENTS. Forms: Portal/Health Info Access Inst Follow-Ups: Ruiz Hays MD [Primary Care Provider, Medical] - 09/01/24 2:00 pm
== END 2024-08-28 18:18 | disposition home or self-care (01) | DRG 153 ==
LOC: MS 21:16 → ED 21:16 → OBSVTOIN 08-25 02:20 → MS 08-25 02:50
PROVIDERS: ADMIT Nurse Practitioner Family; ATTEND Physician Assistant Medical
DX: Z79.82 Long term (current) use of aspirin; E11.65 Type 2 diabetes mellitus with hyperglycemia; H70.92 Unspecified mastoiditis, left ear; Z79.85 Long-term (current) use of injectable non-insulin antidiabetic drugs; E83.42 Hypomagnesemia; I16.0 Hypertensive urgency; I10 Essential (primary) hypertension